=== PATIENT | male | born 1975 | race American Indian/Alaskan Native ===

== ENCOUNTER 2016-11-29 09:07 | Emergency (ER) | payer SELFPAY ==
--- NOTE | 2016-11-29 11:45 | XRay Report ---
CHEST TWO VIEWS: 11/29/16 CLINICAL: Chest pain. COMPARISON: None FINDINGS: Normal heart and pulmonary vasculature. The lungs are normally expanded and clear.The bones and soft tissues are unremarkable. IMPRESSION: Normal chest.
--- NOTE | 2016-11-29 12:40 | Emergency Department Report ---
Entered by RADHA ORELLANA, acting as scribe for ELLIOT CARDENAS PA. HPI - General Chief Complaint: Chest Pain Time Seen by Provider: 11/29/16 11:36 - HPI HPI: 41 y/o male presents to the ED c/o chest pain that began this morning. Denies SOB, bruising and redness. Pain is described as 7/10 on a severity scale. Patient states 2 liter soft drink fell off the shelf while he was reaching for another one and hit him in the chest. No alleviating factors despite taking OTC B/C powder but aggravated with movement. NKDA. Denies any history of heart disease or lung disease. No radiation of pain and localizes to mid sternum area ED Past Medical Hx - Past Medical History Previous Medical History?: No - Surgical History Past Surgical History?: Yes Additional Surgical History: hernia repair -child - Family History Family history: hypertension - Social History Smoking Status: Former Smoker Substance Use Type: Alcohol - Medications Home Medications: Home Medications Medication Instructions Recorded Confirmed Last Taken Type Ibuprofen [Motrin] 800 mg PO Q8HR PRN #15 tablet 11/29/16 Unknown Rx ED Review of Systems ROS: Stated complaint: CHEST PAIN Other details as noted in HPI Comment: All other systems reviewed and negative Constitutional: no symptoms reported Respiratory: no symptoms reported Cardiovascular: chest pain (chest wall pain after injury). denies: palpitations , dyspnea on exertion, edema, syncope Gastrointestinal: denies: abdominal pain, nausea, vomiting Musculoskeletal: denies: back pain, joint swelling, arthralgia, myalgia Skin: denies: rash Neurological: denies: headache Physical Exam - Physical Exam Vital Signs: Vital Signs 11/29/16 09:15 Temperature 98.2 F Pulse Rate 65 Respiratory 14 Rate Blood Pressure 119/81 O2 Sat by Pulse 99 Oximetry General: This is a 41-year-old male well-nourished well-developed in no acute distress. Physical Exam: Head: Normocephalic atraumatic Mouth: Moist, no pharyngeal exudate or erythema. Uvula is midline and oral airway is patent. No facial swelling. No peritonsillar abscesses. Neck: Supple, no C-spine tenderness, no tracheal deviation. Nontender to palpate. no adenopathy Abdomen: Soft, nontender to palpate in all quadrants, normal bowel sounds in all quadrant and negative CVA tenderness bilaterally. Back: No vertebral or paraspinal tenderness. No saddle anesthesia. Patient able to ambulate without any difficulties. Negative SLR bilaterally. Neurological: GCS of 15, alert and oriented 3. Speech is clear and fluid. Normal gait. No motor or sensory deficit. Normal reflexes. No facial drooping. No pronator drift and negative Romberg. Eyes: Bilateral pupils equal and reactive to light, bilateral EOM intact. Bilateral sclera and conjunctiva without injection. Normal accommodation. Lungs: Clear to auscultate bilaterally no rhonchi wheezes or rales. Normal work of breathing extremity; No CCE. +2 pulses. No neurovascular compromise. Capillary refill is less than 3 seconds Cardiovascular/chest: S1-S2, regular rate rhythm. No murmurs. 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 no swelling or bruising Skin: clean Dry and intact no rash no lesions Psych: Normal mood and behavior ED Course Vital Signs 11/29/16 09:15 Temperature 98.2 F Pulse Rate 65 Respiratory 14 Rate Blood Pressure 119/81 O2 Sat by Pulse 99 Oximetry - Reevaluation(s) Reevaluation #1: 11/29/16 12:35 Patient stable throughout ED stay ED Medical Decision Making - EKG Data -: EKG Interpreted by Me (Dr. Hunter) EKG shows normal: sinus rhythm (at 71 bpm) - EKG Data Interpretation: no acute changes - Radiology Data Radiology results: report reviewed Chest x-ray revealed no acute cardiopulmonary findings and no bony abnormalities - Medical Decision Making ED course: Patient here status post trauma to mid chest. He reports he 2 L soft drink fell off the shelf onto his chest. He is complaining the pain 7 out of 10 to chest wall. I discussed the patient that his EKG did not show any acute findings and that this chest x-ray was normal without any bony abnormality. I discussed the patient that he has chest wall pain from object falling on his chest. Patient discharged home with prescription for Motrin and to follow-up with his primary care physician in 2-3 days. Does not have one that he will need to follow-up at [facility]. She voiced understanding and discharged home in stable condition. Critical care attestation.: If time is entered above; I have spent that time in minutes in the direct care of this critically ill patient, excluding procedure time. ED Disposition Clinical Impression: Anterior chest wall pain Chest wall injury Qualifiers: Encounter type: initial encounter Qualified Code(s): S29.9XXA - Unspecified injury of thorax, initial encounter Disposition: TO HOME OR SELFCARE Is pt being admited?: No Does the pt Need Aspirin: No Condition: Stable Instructions: Thoracic Pain (ED) Additional Instructions: Please follow-up with [facility] in 2-3 days Take Motrin as prescribed Prescriptions: Ibuprofen [Motrin] 800 mg PO Q8HR PRN #15 tablet PRN Reason: Pain Referrals: PRIMARY CARE,MD [Primary Care Provider] - 2-3 Days [facility] [Outside] - 2-3 Days Forms: Accompanied Note, Work/School Release Form(ED) This documentation as recorded by the ESTEBAN boyce ELIZABETH,accurately reflects the service I personally performed and the decisions made by ,ELLIOT CARDENAS PA.
[2016-11-29 13:06] VITALS: BP 134/90
== END 2016-11-29 12:42 | disposition home or self-care (01) ==
LOC: ED 09:07
DX: S29.9XXA Unspecified injury of thorax, initial encounter (principal); R07.89 Other chest pain; Z87.891 Personal history of nicotine dependence; X58.XXXA Exposure to other specified factors, initial encounter; Y93.9 Activity, unspecified; Y92.9 Unspecified place or not applicable; Y99.9 Unspecified external cause status
CPT/HCPCS: 71020; 93005; 93010; 99283